=== PATIENT | female | born 1955 | race Caucasian/White ===

== ENCOUNTER → 2020-11-25 | Outpatient (CLI) | payer MEDICARE, BC | LOC: CT 13:44 | DX: R10.819 Abdominal tenderness, unspecified site (principal); R10.2 Pelvic and perineal pain | CPT/HCPCS: 36415; 82565; Q9967 ==

== ENCOUNTER 2021-01-12 18:02 | Emergency (ER) | payer MEDICARE, BC ==
[2021-01-12 19:19] LABS: HEMOGLOBIN 11.7 gm/dl (12.3-15.3); RED BLOOD COUNT 4.59 M/UL (4.00-5.10); WHITE BLOOD COUNT 27.8 K/UL (4.5-11.0)
[2021-01-12 19:50] LABS: BUN/CREATININE RATIO 21 (0-10)
[2021-01-12] MEDS ORDERED: CLINDAMYCIN HC300 MG PO (22:04)
== END 2021-01-12 22:18 | disposition home or self-care (01) ==
LOC: ER1 18:02
PROVIDERS: Physician Assistant
DX: E11.65 Type 2 diabetes mellitus with hyperglycemia (principal); Z79.4 Long term (current) use of insulin
CPT/HCPCS: 73590; 80053; 85025; 85379; 85610; 85652; 85730; 86140; 99283